=== PATIENT | female | born 1985 | race African-American/Black ===

== ENCOUNTER 2016-09-30 06:01 | Emergency (ER) | payer BC ==
[~2016-09-30] VITALS: Ht 162.6 cm; Wt 63.5 kg
[2016-09-30] MEDS ORDERED: IV NS 0.9% 1,000 ML ONE (06:35)
[2016-09-30] MEDS ORDERED: IV SET PRIMARY 1 EA INFUS.SET MC ONE (06:35)
[2016-09-30] MEDS ORDERED: ONDANSETRON HCL/PF 4 MG/2 ML VIAL ONE (06:35)
[2016-09-30] MEDS ORDERED: IBUPROFEN 600 MG TABLET PO ONE ×2 (06:53→07:00)
[2016-09-30] MEDS ORDERED: IV NS 0.9% 1,000 ML BAG IV ONE (07:00)
[2016-09-30] MEDS ORDERED: ONDANSETRON HCL/PF 4 MG/2 ML VIAL IVP ONE (07:00)
[2016-09-30 08:09] VITALS: BP 134/84
== END 2016-09-30 08:10 | disposition home or self-care (01) ==
LOC: ER 06:06
DX: R05 Cough (principal)
CPT/HCPCS: 96361; 96374; 99284; A4606; J2405; J7030; Z7610